=== PATIENT | male | born 1985 | race Caucasian/White ===

== ENCOUNTER 2020-08-12 18:21 | Emergency (ER) | payer BC, SELFPAY ==
[2020-08-12 18:32] VITALS: BP 158/92; PULSE 90; RESP 16; O2SAT 97
[2020-08-12 18:57] VITALS: TEMP 36.7
--- NOTE | 2020-08-12 19:17 | ED.FEVER ---
HPI - Fever General Chief Complaint: Fever Stated Complaint: high fever x2 days Time Seen by Provider: 08/12/20 18:42 History of Present Illness HPI Narrative: Patient is a 35-year-old male who presents ER with concerns for COVID-19 infection. Patient reports that yesterday began to feel fatigued and has been having cycling sense of fevers and chills. Has had some fevers high as 100.3 ?F. No known sick contacts. Reports mild body aches. No chest pain/shortness of breath/runny nose/sore throat/productive cough. Related Data Allergies Allergy/AdvReac Type Severity Reaction Status Date / Time No Known Allergies Allergy Mild Unverified 12/02/04 16:34 Review of Systems Constitutional: Constitutional: Reports chills, Reports fatigue and Reports fever(s) ENT: Denies nasal congestion and Denies sore throat Cardiovascular: Cardiovascular: Denies chest pain Respiratory: Respiratory: Denies cough, Denies dyspnea and Denies wheezing PMFSH Past Medical History Medical History (Updated 08/12/20 @ 19:24 by Danial Pickett MD) Healthy adult male Surgical History Surgical History (Updated 08/12/20 @ 19:18 by Danial Pickett MD) History of appendectomy Social History Social History (Updated 08/12/20 @ 19:18 by Danial Pickett MD) Smoking status: Never smoker Gender identity (if verbalized by the patient): Male Exam Narrative: Exam Narrative: GENERAL: Well-appearing, well-nourished, and in no acute distress. HEAD: Normocephalic, atraumatic. CHEST: Clear to auscultation. No respiratory distress. HEART: Regular rate and rhythm. Normal peripheral pulses. EXTREMITIES: Normal range of motion. NEURO: Alert and oriented x3. Course [employer] CHIEF/PA Physician Supervision Flu negative. Covid pending. Discharge home. Discussed self-isolation patient verbalized understanding. Vital Signs Vital signs: Vital Signs Pulse Rate 90 08/12/20 18:32 Respiratory Rate 16 08/12/20 18:32 Blood Pressure 158/92 H 08/12/20 18:32 Pulse Oximetry 97 08/12/20 18:32 Temperature 98.0 F 08/12/20 18:57 Pulse Rate 90 08/12/20 18:32 Respiratory Rate 16 10/26/20 18:32 Blood Pressure 158/92 H 08/12/20 18:32 Pulse Oximetry 97 08/12/20 18:32 MDM - Fever Lab Data Labs: Lab Results 08/12/20 Range/Units 18:49 SARS-CoV-2 RNA (RT-PCR) Pending Influenza A Screen Negative Reference Range: Negative Influenza B Screen Negative Reference Range: Negative Discharge Plan Discharge Clinical Impression: Person under investigation for COVID-19 Patient Disposition: Home, Self-Care Condition: Stable Instructions: COVID-19 (Coronavirus Disease 2019) (ED) Additional Instructions: Return to the ER if you have chest pain with shortness of breath, you cannot keep down food or water, you lose consciousness, you have additional concerns. Follow-up/Referrals: Herb Pappas MD [Primary Care Provider] - 1 Week
--- NOTE | 2020-08-12 19:27 | ED.FEVER ---
HPI - Fever General Chief Complaint: Fever Stated Complaint: high fever x2 days Time Seen by Provider: 08/12/20 18:42 History of Present Illness HPI Narrative: Patient is a 35-year-old male who presents ER with fevers and chills. Ongoing for 2 days. Fever of 100.3 ?F. Mild myalgias. No chest pain/shortness of breath/runny nose/sore throat/cough. No aggravating or alleviating factors. No known sick contacts but also started feeling ill at the same time. Related Data Allergies Allergy/AdvReac Type Severity Reaction Status Date / Time No Known Allergies Allergy Mild Unverified 12/02/04 16:34 Review of Systems Constitutional: Constitutional: Reports chills, Reports fatigue and Reports fever(s) ENT: Denies nasal congestion and Denies sore throat Respiratory: Respiratory: Denies cough, Denies dyspnea and Denies wheezing Musculoskeletal: Musculoskeletal: Reports myalgias PMFSH Past Medical History Medical History (Updated 08/12/20 @ 19:24 by Danial Pickett MD) Healthy adult male Surgical History Surgical History (Updated 08/12/20 @ 19:18 by Danial Pickett MD) History of appendectomy Social History Social History (Updated 08/12/20 @ 19:18 by Danial Pickett MD) Smoking status: Never smoker Gender identity (if verbalized by the patient): Male Exam Narrative: Exam Narrative: GENERAL: Well-appearing, well-nourished, and in no acute distress. HEAD: Normocephalic, atraumatic. CHEST: Clear to auscultation. No respiratory distress. HEART: Regular rate and rhythm. No murmur heard. Normal peripheral pulses. EXTREMITIES: Normal range of motion. NEURO: Alert and oriented x3. PSYCH: Normal mood and affect. Course Course Emergency Course: Patient informed of results. Flu negative. Covid pending. Self isolate at home. Vital Signs Vital signs: Vital Signs Pulse Rate 90 08/12/20 18:32 Respiratory Rate 16 08/12/20 18:32 Blood Pressure 158/92 H 08/12/20 18:32 Pulse Oximetry 97 08/12/20 18:32 Temperature 98.0 F 08/12/20 18:57 Pulse Rate 90 08/12/20 18:32 Respiratory Rate 16 10/26/20 18:32 Blood Pressure 158/92 H 08/12/20 18:32 Pulse Oximetry 97 08/12/20 18:32 MDM - Fever Lab Data Labs: Lab Results 08/12/20 Range/Units 18:49 SARS-CoV-2 RNA (RT-PCR) Pending Influenza A Screen Negative Reference Range: Negative Influenza B Screen Negative Reference Range: Negative Discharge Plan Discharge Clinical Impression: Person under investigation for COVID-19 Patient Disposition: Home, Self-Care Condition: Stable Instructions: COVID-19 (Coronavirus Disease 2019) (ED) Additional Instructions: Return to the ER if you have chest pain with shortness of breath, you cannot keep down food or water, you lose consciousness, you have additional concerns. Follow-up/Referrals: Herb Pappas MD [Primary Care Provider] - 1 Week
[2020-08-13 14:10] LABS: SARS-CoV-2 RNA PCR Positive
== END 2020-08-12 19:31 | disposition home or self-care (01) ==
PROVIDERS: Emergency Provider Emergency Medicine; PCP Emergency Medicine
DX: U07.1 COVID-19 (principal)
CPT/HCPCS: 87635; 87804; 99283; C9803; U0003

== ENCOUNTER 2022-09-26 08:27 | Emergency (ER) | payer BC, SELFPAY ==
[2022-09-26 08:40] VITALS: BP 138/84; PULSE 84; RESP 18; TEMP 36.4; O2SAT 99
--- NOTE | 2022-09-26 08:45 | ED.URI ---
HPI - URI/Sore Throat General Chief Complaint: Upper Respiratory Infection Stated Complaint: cough,stuffy,low grade fever Time Seen by Provider: 09/26/22 09:10 Source: patient and RN notes reviewed Mode of arrival: ambulatory Limitations: no limitations History of Present Illness HPI Narrative: 37-year-old male presents with ongoing symptoms after COVID at [facility]. He reports ongoing cough, sinus pressure, sinus drainage. He reports symptoms have not resolved despite [id number] medications. He reports low-grade temperature. MD elicited complaint: cough and nasal congestion Related Data Home Medications Medication Instructions Recorded Confirmed trazodone 150 mg tablet 150 mg PO DAILY 09/26/22 09/26/22 Allergies Allergy/AdvReac Type Severity Reaction Status Date / Time No Known Allergies Allergy Mild Verified 09/26/22 08:58 Review of Systems Review of Systems: CONSTITUTIONAL: Reports malaise, low-grade fever. EYES: Denies visual changes, redness, or discharge. ENT: Reports rhinorrhea, congestion, sinus pain CARDIOVASCULAR: Denies chest pain, palpitations, or edema. RESPIRATORY: Reports cough and chest congestion. Denies dyspnea. GASTROINTESTINAL: Denies abdominal pain, nausea, vomiting, diarrhea SKIN: Denies rash or itching. MUSCULOSKELETAL: Denies myalgia. NEUROLOGIC: Denies headache. All systems reviewed & are unremarkable except as noted in HPI and below PMFSH Past Medical History Medical History (Updated 09/26/22 @ 09:16 by oJan Villanueva NP) Healthy adult male Surgical History Surgical History (Updated 08/12/20 @ 19:18 by Danial Pickett MD) History of appendectomy Social History Social History (Updated 08/12/20 @ 19:18 by Danial Pickett MD) Smoking status: Never smoker Gender identity (if verbalized by the patient): Male Comments At time of signature, agree with nursing past medical, surgical, social and family history. There is no relevant family history pertinent to the presenting complaint Exam Narrative: GENERAL: Well-appearing, well-nourished, and in no acute distress. HEAD: Normocephalic EYES: PERRLA, conjunctivae clear ENT: Nares clear, turbinates edematous and erythematous, yellow discharge. Mucous membranes moist. TM pearly thomas with dull light reflex bilaterally; no tragal tenderness. Oropharynx not erythematous without lesions. Tonsils not enlarged and without exudate, no drooling, no hoarseness, no trismus, uvula midline. NECK: Supple. No lymphadenopathy CHEST: Clear to auscultation, breath sounds equal. No wheezing, rhonchi, rales, or stridor. No respiratory distress, speaks in full sentences. Cough noted HEART: Regular rate and rhythm. No murmur heard. SKIN: Warm, dry, no rash. NEURO: Alert and oriented x3. PSYCH: Normal mood and affect Course Course Emergency Course: Patient is aware of diagnosis, understands and agrees to treatment plan. Anticipatory guidance given. Patient agrees to follow-up as directed and is aware of reasons to seek care at the emergency department. Portions of this record may have been created with voice recognition software Level of Care: Express Care Visit Vital Signs Vital signs: Reviewed. MDM - URI/Sore Throat MDM Narrative Medical decision making narrative: Differential diagnosis considered: Wade virus, strep pharyngitis, allergic rhinitis, upper respiratory tract infection, sinusitis, rhinosinusitis, nasopharyngitis. viral pharyngitis, otitis media, otitis externa, pneumonia, bronchitis, viral cough syndrome, viral syndrome, and influenza. Exam findings show no acute concerns or changes; patient is non-toxic appearing and is in no distress. Patient is appropriate for outpatient treatment and follow-up. Lab Data Attestation: I reviewed the patient's lab results. Critical Care Time Critical Care Time Critical Care Time: No Discharge Plan Discharge Clinical Impression: Sinobronchitis Patient D
== END 2022-09-26 09:24 | disposition home or self-care (01) ==
PROVIDERS: Emergency Provider Nurse Practitioner; PCP Emergency Medicine
DX: J32.9 Chronic sinusitis, unspecified (principal); J40 Bronchitis, not specified as acute or chronic; Z86.16 Personal history of COVID-19
CPT/HCPCS: 99213; G0463